=== PATIENT | female | born 1975 | race Caucasian/White ===

== ENCOUNTER 2020-11-17 20:09 | Emergency (ER) | payer BC ==
--- NOTE | 2020-11-17 21:00 | EDM.PDOC ---
ED HPI GENERAL MEDICAL PROBLEM - General Chief Complaint: Gastrointestinal Problem Stated Complaint: GENERAL Time Seen by Provider: 11/17/20 20:25 Source of Information: Reports: Patient History Limitations: Reports: No Limitations - History of Present Illness INITIAL COMMENTS - FREE TEXT/NARRATIVE: Iris is a 45 year old female who presents to ER with complaints of bright red blood per rectum. She notes she was constipated today and did have to strain to have a bowel movement. About 2 1/2 hours later, "had to pass gas" and voided and noted blood on the tissue with wiping. She has not had any blood since that time. Just recently did finish her menstrual cycle but notes the "blood is now brown and there was minimal on the tampon today". She denies any known history of hemorrhoids. No blood noted in stool in past. Has not had a colonoscopy. Typically does not have issues with constipation but has been travelling and not as active as normal. Denies feeling lightheaded. No abdominal pain. No fevers. Onset: Today, Sudden Duration: Minutes:, Resolved Prior to Arrival Location: Reports: Abdomen Associated Symptoms: Reports: No Other Symptoms Past Medical History - Past Health History Medical/Surgical History: Denies Medical/Surgical History Social & Family History - Tobacco Use Tobacco Use Status *Q: Unknown Ever Used Tobacco ED ROS GENERAL - Review of Systems Review Of Systems: See Below Constitutional: Denies: Fever, Chills, Malaise, Weakness, Decreased Appetite HEENT: Reports: No Symptoms Respiratory: Denies: Shortness of Breath, Cough Cardiovascular: Denies: Chest Pain, Edema, Lightheadedness Endocrine: Denies: Fatigue GI/Abdominal: Reports: Constipation, Hematochezia. Denies: Abdominal Pain, Nausea, Vomiting : Reports: No Symptoms Musculoskeletal: Reports: No Symptoms Skin: Reports: No Symptoms Neurological: Reports: No Symptoms Psychiatric: Reports: No Symptoms ED EXAM, GI/ABD - Physical Exam Exam: See Below Exam Limited By: No Limitations General Appearance: Alert, WD/WN, No Apparent Distress Ears: Normal External Exam, Normal TMs Nose: Normal Inspection, Normal Mucosa, No Blood Throat/Mouth: Normal Inspection, Normal Oropharynx Head: Normocephalic Neck: Normal Inspection, Supple, Non-Tender Respiratory/Chest: No Respiratory Distress, Lungs Clear, Normal Breath Sounds Cardiovascular: Regular Rate, Rhythm GI/Abdominal Exam: Normal Bowel Sounds, Soft, Non-Tender Rectal (Female) Exam: Heme - Stool, Other (rectal exam completed and negative) Extremities: Normal Inspection, No Pedal Edema Neurological: Alert, Oriented Skin Exam: Warm, Dry Course - Re-Assessments/Exams Free Text/Narrative Re-Assessment/Exam: 11/17/20 FOB done and was negative at this time. Departure - Departure Time of Disposition: 20:57 Disposition: Home, Self-Care 01 Condition: Good Clinical Impression: BRBPR (bright red blood per rectum) - Discharge Information *PRESCRIPTION DRUG MONITORING PROGRAM REVIEWED*: No *COPY OF PRESCRIPTION DRUG MONITORING REPORT IN PATIENT JOSE MANUEL: No Instructions: Rectal Bleeding, [id number] Referrals: PCP,Not In Area [Primary Care Provider] - Forms: ED Department Discharge Additional Instructions: 1. Push fluids 2. Increase fiber in diet, if stools constipated or hard, may need stool softener 3. Watch for increased blood between or with stools 4. If become lightheaded or have frequent bleeding, may need to return back to the ER 5. If note periodic blood, do need to follow up with your primary care provider and discuss possible colonoscopy
== END 2020-11-17 21:12 | disposition home or self-care (01) ==
LOC: VM.ED 20:09
DX: K62.5 Hemorrhage of anus and rectum (principal)
CPT/HCPCS: 82272; 82274; 99283; G0328